=== PATIENT | female | born 1975 | race Two or more races ===

== ENCOUNTER 2021-04-30 13:07 | Emergency (ER) | payer OTHER ==
[~2021-04-30] VITALS: Ht 165.1 cm; Wt 70.3 kg
[2021-04-30] MEDS ORDERED: ZESTRIL10 M1 PO (13:28)
== END 2021-04-30 18:39 | disposition home or self-care (01) ==
LOC: ER 13:07
DX: K52.89 Other specified noninfective gastroenteritis and colitis (principal); R10.84 Generalized abdominal pain; Z20.822 Contact with and (suspected) exposure to COVID-19; I10 Essential (primary) hypertension; Z88.5 Allergy status to narcotic agent

== ENCOUNTER 2022-01-24 08:28 | Emergency (ER) | payer OTHER ==
[~2022-01-24] VITALS: Ht 165.1 cm; Wt 73.0 kg
[~2022-01-24 08:28] MED LIST: ZESTRIL10 M1 PO
== END 2022-01-24 11:27 | disposition home or self-care (01) ==
LOC: ER 08:28
DX: R05.9 Cough, unspecified (principal); Z20.822 Contact with and (suspected) exposure to COVID-19

== ENCOUNTER 2022-02-27 17:13 | Emergency (ER) | payer OTHER ==
[~2022-02-27] VITALS: Ht 165.1 cm; Wt 72.6 kg
[2022-02-27] MEDS ORDERED: DICLOFENAC SODI75 MG PO (21:40)
== END 2022-02-27 22:01 | disposition home or self-care (01) ==
LOC: ER 17:13
DX: N83.201 Unspecified ovarian cyst, right side (principal); Z20.822 Contact with and (suspected) exposure to COVID-19

== ENCOUNTER 2022-03-20 19:00 | Emergency (ER) | payer OTHER ==
[~2022-03-20] VITALS: Ht 165.1 cm; Wt 72.6 kg
[~2022-03-20 19:00] MED LIST changes: +DICLOFENAC SODI75 MG PO
[2022-03-20] MEDS ORDERED: CIPRO500 MG PO (23:03)
[2022-03-20] MEDS ORDERED: PEPCID AC20 MG PO (23:03)
[2022-03-20] MEDS ORDERED: INTESTINEX680 M1 PO (23:03)
[2022-03-20] MEDS ORDERED: METRONIDAZOLE500 MG PO (23:03)
== END 2022-03-20 23:23 | disposition home or self-care (01) ==
LOC: ER 19:00
DX: R19.7 Diarrhea, unspecified (principal); Z88.8 Allergy status to other drugs, medicaments and biological substances

== ENCOUNTER → 2022-05-09 06:00 | Outpatient (CLI) | payer OTHER ==
[~2022-05-09] VITALS: Ht 165.1 cm; Wt 70.3 kg
[~2022-05-09 06:00] MED LIST changes: +CIPRO500 MG PO; +INTESTINEX680 M1 PO; +METRONIDAZOLE500 MG PO; +OSEL75CA PO; +PEPCID AC20 MG PO; +PROTONIX40 MG PO
== END | disposition home or self-care (01) ==
LOC: LAB 06:00 → ADM 08:15 → CIR.AMB 05-11 08:15 → EDSTATUS 05-11 08:15
PROVIDERS: ATTEND Obstetrics & Gynecology Gynecologic Oncology
DX: Z01.818 Encounter for other preprocedural examination (principal); N83.291 Other ovarian cyst, right side; N80.109 Endometriosis of ovary, unspecified side, unspecified depth; D64.9 Anemia, unspecified; Z20.822 Contact with and (suspected) exposure to COVID-19; I10 Essential (primary) hypertension; R79.1 Abnormal coagulation profile

== ENCOUNTER 2022-05-09 12:17 | Outpatient (CLI) | payer OTHER ==
[~2022-05-09 12:17] MED LIST changes: -OSEL75CA PO
[2022-05-09] MEDS ORDERED: OSEL75CA PO (13:20)
== END 2022-05-09 13:49 | disposition home or self-care (01) ==
LOC: LAB 12:17
PROVIDERS: ATTEND Internal Medicine
DX: R05.8 Other specified cough (principal)

== ENCOUNTER 2022-06-22 06:55 | Day surgery (SDC) | payer OTHER ==
[~2022-06-22] VITALS: Ht 165.1 cm; Wt 70.3 kg
[~2022-06-22 06:55] MED LIST changes: +OSEL75CA PO
== END 2022-06-22 17:40 | disposition home or self-care (01) ==
LOC: CIR.AMB 06:55
PROVIDERS: ATTEND Obstetrics & Gynecology Gynecologic Oncology
DX: N83.11 Corpus luteum cyst of right ovary (principal); N83.291 Other ovarian cyst, right side; N88.8 Other specified noninflammatory disorders of cervix uteri; D64.9 Anemia, unspecified; I10 Essential (primary) hypertension; Z20.822 Contact with and (suspected) exposure to COVID-19; Z91.013 Allergy to seafood

== ENCOUNTER 2022-09-30 16:03 | Emergency (ER) | payer OTHER ==
[~2022-09-30] VITALS: Ht 165.1 cm; Wt 72.6 kg
[2022-09-30] MEDS ORDERED: CARAFATE1 GM/10 ML PO (18:21)
== END 2022-09-30 18:32 | disposition home or self-care (01) ==
LOC: ER 16:03
DX: K29.00 Acute gastritis without bleeding (principal); R10.9 Unspecified abdominal pain; Z88.8 Allergy status to other drugs, medicaments and biological substances; Z91.013 Allergy to seafood

== ENCOUNTER 2022-10-16 13:59 | Emergency (ER) | payer OTHER ==
[~2022-10-16] VITALS: Ht 165.1 cm; Wt 70.3 kg
[~2022-10-16 13:59] MED LIST changes: +CARAFATE1 GM/10 ML PO
== END 2022-10-17 00:09 | disposition home or self-care (01) ==
LOC: ER 13:59
PROVIDERS: Emergency Medicine
DX: K29.00 Acute gastritis without bleeding (principal); Z91.013 Allergy to seafood; Z88.8 Allergy status to other drugs, medicaments and biological substances; K21.9 Gastro-esophageal reflux disease without esophagitis; I10 Essential (primary) hypertension; N20.0 Calculus of kidney

== ENCOUNTER 2023-12-10 07:13 | Emergency (ER) | payer OTHER ==
[~2023-12-10] VITALS: Ht 165.1 cm; Wt 74.8 kg
[2023-12-10] MEDS ORDERED: BUTALB/ACETAMINOPHEN/CAFFEINE 1 TAB TABLET PO ONE (08:30)
[2023-12-10] MEDS ORDERED: 0.9 % SODIUM CHLORIDE 500 ML IV ONE (08:45)
[2023-12-10 09:32] LABS: HEMOGLOBIN 13.4 g/dL (12.0-15.00); MEAN CELL VOLUME 86.5 fL (80.00-100.00); MEAN CORPUSCULAR HEMOGLOBIN 29.8 pg (27.00-32.0); MEAN CORPUSCULAR HGB CONC 34.5 g/dl (32.0-36.0); PLATELET COUNT 314 K/uL (150-450); RED BLOOD COUNT 4.51 M/uL (4.00-6.00); RED CELL DISTRIBUTION WIDTH 13.6 % (11.5-14.5)
[2023-12-10 10:11] LABS: CALCIUM 9.2 mg/dL (8.5-10.1); CREATININE SERUM 0.7 mg/dL (0.55-1.02); GFR 90.08; POTASSIUM 4.29 mEq/L (3.5-5.1)
[2023-12-10] MEDS ORDERED: BUTALB-ACETAMI1 EACH PO (10:56)
[2023-12-10] MEDS ORDERED: ZITHROMAX200 MG PO (10:56)
[2023-12-10] MEDS ORDERED: CHLORASEPTIC M118 ML MM (10:56)
== END 2023-12-10 11:05 | disposition home or self-care (01) ==
LOC: ER 07:15
PROVIDERS: General Practice
DX: J32.9 Chronic sinusitis, unspecified (principal); J02.9 Acute pharyngitis, unspecified; Z91.013 Allergy to seafood; G43.909 Migraine, unspecified, not intractable, without status migrainosus; Z20.822 Contact with and (suspected) exposure to COVID-19